=== PATIENT | female | born 1990 | race African-American/Black ===

== ENCOUNTER 2021-02-14 10:30 | Emergency (ER) | payer SELFPAY ==
[~2021-02-14] VITALS: Ht 170.2 cm; Wt 104.5 kg
[~2021-02-14 10:30] MED LIST: INSU100I41 SQ; METF850T8 PO
[2021-02-14] MEDS ORDERED: IBUPROFEN 100 MG/5 ML ORAL.SUSP. PO ONE (11:15)
[2021-02-14] MEDS ORDERED: DEXAMETHASONE 4 MG TABLET PO ONE (11:15)
--- NOTE | 2021-02-14 11:20 | PHYS DOC ---
Past Medical History Past Medical History: Anemia, Diabetes-Type II Past Surgical History: No Surgical History Smoking Status: Current Every Day Smoker Alcohol Use: Occasionally Drug Use: None General Adult EDM: Chief Complaint: SORE THROAT HPI: HPI: Patient is a 30-year-old female that presents today with sore throat. Patient states her symptoms started on Saturday, she states that she had a Covid test on Saturday and was called results this morning which were negative, today she presents to the emergency department for evaluation of her sore throat. Patient denies fever or cough. Patient denies sinus congestion as well. Patient does states she is having difficulty swallowing and feels her throat is swollen Review of Systems: Review of Systems: Constitutional: Denies fever or chills. [] Eyes: Denies change in visual acuity. [] HENT: Denies nasal congestion, throat pain with throat swelling Respiratory: Denies cough or shortness of breath. [] Cardiovascular: Denies chest pain or edema. [] GI: Denies abdominal pain, nausea, vomiting, bloody stools or diarrhea. [] : Denies dysuria. [] Musculoskeletal: Denies back pain or joint pain. [] Integument: Denies rash. [] Neurologic: Denies headache, focal weakness or sensory changes. [] Endocrine: Denies polyuria or polydipsia. [] Lymphatic: Denies swollen glands. [] Psychiatric: Denies depression or anxiety. [] Heart Score: C/O Chest Pain: N/A Risk Factors: Risk Factors: DM, Current or recent (<one month) smoker, HTN, HLP, family history of CAD, obesity. Risk Scores: Score 0 - 3: 2.5% MACE over next 6 weeks - Discharge Home Score 4 - 6: 20.3% MACE over next 6 weeks - Admit for Clinical Observation Score 7 - 10: 72.7% MACE over next 6 weeks - Early Invasive Strategies Allergies: Allergies: Allergies Coded Allergies Type Severity Reaction Last Updated Verified vancomycin Allergy Intermediate Itching 11/09/20 Yes Physical Exam: PE: Constitutional: Well developed, well nourished, no acute distress, non-toxic appearance. [] HENT: Tympanic membranes bilaterally normal, nasal passages red no swelling noted, no sinus pain with palpation. Tonsils bilaterally swollen white patches noted, anterior cervical adenopathy noted. Eyes: PERRLA, EOMI, conjunctiva normal, no discharge. [] Neck: Normal range of motion, no tenderness, supple, no stridor. [] Cardiovascular:Heart rate regular rhythm, no murmur [] Lungs & Thorax: Bilateral breath sounds clear to auscultation [] Abdomen: Bowel sounds normal, soft, no tenderness, no masses, no pulsatile masses. [] Skin: Warm, dry, no erythema, no rash. [] Back: No tenderness, no CVA tenderness. [] Extremities: No tenderness, no cyanosis, no clubbing, ROM intact, no edema. [] Neurologic: Alert and oriented X 3, normal motor function, normal sensory function, no focal deficits noted. [] Psychologic: Affect normal, judgement normal, mood normal. [] Current Patient Data: Vital Signs: Vital Signs Date Time Temp Pulse Resp B/P (MAP) Pulse Ox O2 Delivery O2 Flow Rate FiO2 02/14/21 10:57 98.8 92 20 141/96 (111) 96 Room Air 98.8 EKG: EKG: [] Radiology/Procedures: Radiology/Procedures: Laboratory Tests Test 02/14/21 11:30 Group A Streptococcus Rapid Positive Current Medications Medications (Trade) Dose Ordered Sig/Jeremie Route PRN Reason Start Time Stop Time Status Last Admin Dose Admin Dexamethasone (Decadron) 10 mg 1X ONCE PO 02/14/21 11:15 02/14/21 11:16 DC 02/14/21 11:27 Ibuprofen (Children'S Motrin) 400 mg 1X ONCE PO 02/14/21 11:15 02/14/21 11:16 DC 02/14/21 11:26 [] Course & Med Decision Making: Course & Med Decision Making Pertinent Labs and Imaging studies reviewed. (See chart for details) 12:00 patient states throat feels better and is able to swallow with less pain. Patient informed that her throat swab was positive for strep, due to financial cost will give Bicillin LA while here in the emergency department. Will remind patient that due to her new diagnosis of diabetes her blood sugars may run higher than normal and to call her primary care physician if she has any questions. Patient will be instructed to increase of by mouth fluids, take [id number] Tylenol and/or ibuprofen as needed for pain. Return here for inability to swallow, fever not controlled by Tylenol or ibuprofen, or feels like throat is closing. Figueroa Disclaimer: Dragon Disclaimer: This electronic medical record was generated, in whole or in part, using a voice recognition dictation system. Departure Departure Impression: Primary Impression: Pharyngitis Qualified Codes: J02.9 - Acute pharyngitis, unspecified Disposition: HOME / SELF CARE / HOMELESS Condition: STABLE Referrals: NO PCP (PCP) Patient Instructions: Viral and Bacterial Pharyngitis Additional Instructions: [id number] Tylenol and/or ibuprofen as needed for fever and pain Increase by mouth fluids to stay hydrated Return to the emergency department if increased throat swelling, inability to swallow saliva, or any other concerns you may have Follow-up with your primary care physician in 3 to 5 days as needed list provided for providers here at [facility]eg[facility] APRN Feb 14, 2021 11:20
[2021-02-14] MEDS ORDERED: PENICILLIN G BENZATHINE LA 1,200,000 UNIT/2 ML DISP.SYRIN. IM ONE (12:15)
[2021-02-14 12:30] VITALS: BP 132/81
== END 2021-02-14 12:33 | disposition home or self-care (01) ==
LOC: ER 10:30
DX: J02.9 Acute pharyngitis, unspecified (principal); E11.9 Type 2 diabetes mellitus without complications; F17.200 Nicotine dependence, unspecified, uncomplicated; Z88.1 Allergy status to other antibiotic agents
CPT/HCPCS: 87880; 96372; 99283; J0561